=== PATIENT | female | born 1960 | race Caucasian/White ===

== ENCOUNTER 2020-12-11 12:25 | Day surgery (SDC) | payer OTHER, SELFPAY ==
[2020-12-11] VITALS (7 sets, daily range): BP systolic 117–157; BP diastolic 78–92; PULSE 68–72; RESP 8–18; TEMP 36.8; O2SAT 95–100; BMI 23.3; BMI 21.8
[2020-12-11] MEDS: LACTATED RINGERS 1,000 ML 30 ML IV CONT ×2 (13:35→17:26)
--- NOTE | 2020-12-11 14:00 | WPDANESEPPF ---
Anes - Initial Pre Proc Eval Procedure: Operation Date: 12/11/20 14:00 Proposed Procedures p Breast Implant Exchange-Left - Jame Millan MD Date/Time: 12/11/20 14:00 Surgeon: Jame Millan MD Pre Op Diagnosis: unknown Patient Data Age: 60 Gender: F Height: 5 ft 7 in Weight: 63.25 kg Last Vital Signs Temp 36.8 C 12/11/20 12:45 Pulse 70 12/11/20 12:45 Resp 16 12/11/20 12:45 BP 117/78 12/11/20 12:45 Pulse Ox 100 12/11/20 12:45 Allergies Allergy/AdvReac Type Severity Reaction Status Date / Time No Known Allergies Allergy Verified 12/11/20 08:54 Home Medications Medication Instructions Recorded Confirmed Type levothyroxine 75 mcg tablet 75 mcg PO DAILY tablet 11/12/20 12/11/20 History oxybutynin chloride 5 mg 5 ea PO DAILY 11/12/20 12/11/20 History tablet,extended release 24 hr progesterone micronized 100 mg 100 mg PO DAILY 11/12/20 12/11/20 History capsule cephalexin 500 mg capsule 500 mg PO Q8H #21 cap 12/10/20 12/11/20 Rx albuterol sulfate [ProAir HFA] 2 puff INHALATION PRN PRN 12/11/20 12/11/20 History Patient hx anesthesia problems: none Family hx anesthesia problems: none [facility] Past Medical History Medical History (Updated 12/11/20 @ 14:00 by Josue Julio MD) Asthma Social History Social History Smoking status: Never smoker Alcohol intake: current Substance use: never Substance use type: does not use Living arrangements: with family Gender identity (if verbalized by the patient): Female Spiritual care concerns: No Anes - Eval Final PreProcedure Day of Procedure 12/11/20 14:00 Patient weight: normal Heart: regular rate and rhythm Lungs: clear to auscultation Airway: Mallampati scale class II Neurological: alert and oriented Last oral intake: >/= 8 hours ASA classification: II Emergent: no Anesthetic plan: proceed Anesthesia type and monitoring: general LMA and standard monitoring Informed Consent: The patient's anesthetic plan and its attendant risks and benefits were discussed with the patient/family/POA. Questions were solicited and answers provided to the satisfaction of the patient/family/POA.
--- NOTE | 2020-12-11 15:30 | WPDHPUPDATE1 ---
History and Physical Update Update Date/Time: 12/11/20 15:30 History and Physical has been reviewed, including an updated exam of the patient. There are NO changes in the patient's condition. Risks, benefits, and alternatives have been discussed and questions answered. Patient agrees to proceed with procedure.
--- NOTE | 2020-12-11 15:47 | PM.PROC ---
Procedure Note - Detailed Date of procedure: 12/11/20 Pre-op diagnosis: unknown Threatened exposure left implant, possible rupture left breast implant, history breast augmentation Post-op diagnosis: same Procedure performed: Exchange of left breast implant Description of procedure: She is here today after a weight bar fell on left breast. This lead to significant swelling, possible rupture, and threatened implant exposure with of the left breast. She is having no concerns currently of the right breast. Preoperatively the risks, benefits, alternatives were discussed in extensive detail with her and her . I want her to be very clear about the risks involved as well as expectations. Previously and again today we went over all the options making sure there making well informed decision. We discussed the options of implant selection again today although this had been discussed on the phone and in person yesterday as well. I explained that she currently has a textured on the right. One option would be to this exchange it given the recall of the textured implant. She does not wish to do that. We explained the option of the left is to place a smooth implant above the muscle however this places her at risk of capsular contracture. She already had a degree of capsular contracture at this in clear [place] is that risk. Further explained on her left side we could go submuscular which would change the plane improve, theoretically the risk of capsular contracture however it would be different from the contralateral side. Finally she selects to go above the muscle with a smooth implant this will likely behave short term and especially long-term different than the contralateral left textured implant. This was a lengthy open-ended conversation discussing above as well as all options. Outlining the complexity of her situation. Explaining she already has wound is there is a high risk that she would lose the replacement implant. I answered every question of her and her 's today to their satisfaction and consent was obtained. They would like to proceed. She was taken to the operating room placed supine on the operating room table. Anesthesia was provided by anesthesiology and she was prepped and draped in a standard sterile fashion. Tegaderm nipple brandt were placed. Surgical time-out was taken. 1% lidocaine and 0.25% Marcaine with epinephrine was used to provide a field block. A 15 blade used to make an incision around the open wound. Dissection was continued down until the implant was identified and this was removed. There was a small rupture that corresponded with medial to the areola as seen on the ultrasound. Minimal free silicone. Small volume of purulence noted (cultures already taken in the office). I irrigated with more than 3 L of saline containing solution on TUR tubing. I made sure wound was completely clean. I did remove a portion of the capsule given her history of capsular contracture / exposure of implant. I then soaked with triple antibiotic betadine solution for a prolonged period of time. Then irrigated with 1 liter of saline / bacitracin solution. A 15 gilda drain was placed / brought out laterally and sutured into place with 3-0 Silk. Pre-operatively we had discussed how to proceed and when to attempt salvage versus leave the implant out so based on this conversation proceeded with implant replacement. I copiously irrigated with triple antibiotic Betadine solution. My gloves were washed. Using a no-touch technique and a Farooq funnel the implant was introduced into the pocket. This was closed with 2-0 Vicryl followed by 3-0 Monocryl and a running subcuticular 4-0 Monocryl and tissue glue. She tolerated the procedure well. Taken to the PACU without difficulty. All instrument and sponge counts were correct at the end of the case. Anesthesia: GLMA Surgeon: Jame Millan MD Estimated blood loss (mL): 5
[2020-12-11] MEDS: ceFAZolin 2 GM/D5W 50 ML 2 GM/50 ML BAG IVPB (16:02)
[2020-12-11] MEDS: LIDO 1%/EPINEPHRINE 1:100,000 20 ML VIAL 15 ML INFILTRATE (16:35)
--- NOTE | 2020-12-11 17:38 | WPDANESPN ---
Anes - Prog Note Post-Op Date/Time: 12/11/20 17:38 Cardiovascular status: normal Respiratory status: normal Airway patency: baseline Mental status: baseline Post-Op hydration status: normal Vital Signs: Last Vital Signs Temp 36.8 C 12/11/20 17:26 Pulse 68 12/11/20 17:26 Resp 8 L 12/11/20 17:26 BP 147/83 H 12/11/20 17:26 Pulse Ox 100 12/11/20 17:26 Pain Score (VAS): 0 Post-procedural complaints: none Patient Feedback: Patient satisfied with anesthetic care.
== END 2020-12-11 18:38 | disposition home or self-care (01) ==
PROVIDERS: Visit Provider Surgery Plastic and Reconstructive Surgery
PROC: (CPT 19342; principal; 2020-12-11 14:00)
DX: T85.49XA Other mechanical complication of breast prosthesis and implant, initial encounter (principal)
CPT/HCPCS: 19342

== ENCOUNTER 2020-12-11 19:56 | Outpatient (NON) | payer OTHER, SELFPAY | END 2020-12-11 19:57 | PROVIDERS: Visit Provider Surgery Plastic and Reconstructive Surgery | DX: S21.002A Unspecified open wound of left breast, initial encounter (principal) | CPT/HCPCS: 87070; 87075; 87147; 87186; 87205 ==